=== PATIENT | female | born 1970 | race Caucasian/White ===

== ENCOUNTER 2017-01-07 00:32 | Emergency (ER) | payer SELFPAY ==
[2017-01-07] MEDS ORDERED: NORMAL SALINE 1,000 ML IV ONE (01:01)
[2017-01-07] MEDS ORDERED: ONDANSETRON HCL/PF 2 MG/ML VIAL IV ONE (01:01)
[2017-01-07] MEDS ORDERED: ONDANSETRON HCL/PF 2 MG/ML VIAL ONE (01:03)
[2017-01-07 01:09] LABS: Hemoglobin 15.7 gm/dL (12.5-16.0); Mean Cell Volume 98.7 fl (78-100); Mean Corpuscular Hemoglobin 35.2 pg (27-31); Mean Corpuscular Hgb Conc 35.7 g/dl (32-36); Neutrophil # 4.3 K/mm3 (1.3-6.0); Neutrophil % 48.8 % (42-75.0); Platelet Count 307 K/mm3 (150-450); Red Blood Count 4.46 M/mm3 (4.2-5.4); Red Cell Distribution Width 14.6 % (11.5-14.0); White Blood Count 8.8 K/mm3 (4.0-10.5)
[2017-01-07 01:45] LABS: Albumin * 3.6 gm/dl (3.4-5.0); Anion Gap 22.5 mmol/L (6.8-13.8); BUN/Creatinine Ratio 4.4 (9.0-21.6); Bilirubin, Total 0.6 mg/dL (0.0-1.1); Ca. Corrected For Albumin 7.5 mg/dL (8.4-10.2); Calcium * 7.5 mg/dL (7.9-10.9); Carbon Dioxide 25.3 mmol/L (24-32.6); Potassium 2.8 mmol/L (3.4-4.6); Total Protein 7.8 gm/dL (6.2-8.2)
--- NOTE | 2017-01-07 02:53 | ERNOTE ---
Abdominal HPI - General Chief Complaint: Abdominal Pain Time Seen by Provider: 01/07/17 01:04 Source: patient, family, RN notes reviewed Exam Limitations: no limitations - Immun/Allergies/Home Medications Immunizatons: IMMUNIZATION HX Immunizations Up to Date Yes Allergies/Adverse Reactions: Allergies No Known Allergies Allergy (Unverified 01/07/17 00:50) Home Medications: HOME MEDICATIONS Buspirone HCl 30 mg PO TID 01/07/17 [Last Taken Unknown] Duloxetine HCl [Cymbalta] 60 mg PO DAILY 01/07/17 [Last Taken Unknown] Lisinopril [Zestril] 40 mg PO DAILY 01/07/17 [Last Taken Unknown] Magnesium Chloride [Mag64] 64 mg PO TID 01/07/17 [Last Taken Unknown] Nystatin 100,000 unit PO Q6H #200 oral.susp 01/07/17 [Last Taken Unknown] Omeprazole 40 mg PO DAILY 01/07/17 [Last Taken Unknown] Ondansetron [Zofran Odt] 4 mg SL Q6H PRN #20 tab 01/07/17 [Last Taken Unknown] amLODIPine BESYLATE [Norvasc] 10 mg PO DAILY 01/07/17 [Last Taken Unknown] - History of Present Illness Narrative: 46 year old female with long history of drinking excess alcohol presents with complaints of long standing nausea and vomiting and a seizure the other night witnessed by her spouse. Patient has been trying to cut back on the amount of alcohol she drinks. She was supposed to go to local therapy in [place] but misunderstood (per patient) the directions of where to be and what to do. She complains of the sensation of a swelling in her throat, has been to see Dr. Aburto , who did not appear to think that there was any problem. Timing: intermittent Quality: dullness, fullness Activities at Onset: sleep Modifying Factors - (Improves): Present: vomiting Modifying Factors - (Worsens): Present: eating Associated Symptoms: Present: nausea, vomiting Prior Treatment: Present: recently seen, treated by physician Review of Systems - Review of Systems Constitutional: Present: weakness, fatigue, malaise EYE: Present: no symptoms reported ENT: Present: sore throat Respiratory: Absent: shortness of breath, cough Cardiology: Absent: chest pain, palpitations Gastrointestinal/Abdominal: Present: nausea, vomiting, diarrhea, abdominal pain Genitourinary: Present: no symptoms reported Musculoskeletal: Present: no symptoms reported Skin: Present: no symptoms reported Neurological: Present: anxiety Endocrine: Present: no symptoms reported - Patient's Past Medical History Patient History - Medical: Alcohol Abuse, Anxiety, Depression, GERD Patient History - Cardiac/Respiratory: Hypertension, Hyperlipidemia Patient History - Cancer: No Hx of Cancer Patient History - Surgical Procedures: No surgical history Patient History - Other: None - Social History Living Situations: home Smoking Status: Current every day smoker Patient requests Smoking Cessation Consult: No Initiate information on Smoking Cessation: No Alcohol Use: sober Drug Use: none - Immunizations Immunizations Up to Date: Yes Physical Exam - Physical Exam General Appearance: Present: wd/wn, alert, mild distress, anxious Head Exam: Present: normal inspection, no evidence of injury Eye Exam: Normal inspection: bilateral, PERRL: bilateral, EOMI: bilateral Ears, Nose, Throat: Present: normal ENT inspection, normal pharynx - small area that appears very mildly swollen on the left side of her pharynx Neck: Present: normal inspection, nontender, supple Respiratory: Present: no respiratory distress, normal breath sounds, no accessory muscle use Cardiovascular/Chest: Present: regular rate, rhythm, no murmur, normal peripheral pulses Gastrointestinal/Abdominal: Present: normal bowel sounds, nondistended, soft, tenderness - mild epigastric Back Exam: Present: normal inspection, normal range of motion Extremity Exam: Present: normal inspection Neurological Exam: Present: alert, oriented, normal mood/affect, no motor/ sensory deficits Skin Exam: Present: normal color, warm/dry ED Progress - Results and Orders Patient's Lab Results:: I have reviewed the patient's lab results. - Vital Signs Patient's Vital Signs:: I have reviewed the patient's vital signs. Vital Signs: Vital Signs 01/07/17 01/07/17 00:44 01:19 Temperature 36.8 C Pulse Rate 99 98 Respiratory 20 18 Rate Blood Pressure 137/87 138/79 O2 Sat by Pulse 97 97 Oximetry - Progress/Reassessment Chief Complaint: Abdominal Pain Plan - Plan Plan: Counseling to patient and spouse about alcohol abuse and her options for treatment. Departure - Departure Clinical Impression: Alcohol abuse, Persistent recurrent vomiting, Thrush of mouth and esophagus Withdrawal seizures Qualifiers: Complication of substance-induced condition: uncomplicated Qualified Code(s): F19.230 - Other psychoactive substance dependence with withdrawal, uncomplicated Disposition: Home self-care Condition: Good Instructions: Alcohol Use Disorder, Thrush, Adult, Delirium Tremens, Easy-to- Read, Dehydration, Adult, [id number], Rehydration, Adult, Alcohol Abuse and Nutrition Referrals: Lynne Viveros ARNP [Non Staff Physicians] - Prescriptions: Nystatin 100,000 unit PO Q6H #200 oral.susp Ondansetron [Zofran Odt] 4 mg SL Q6H PRN #20 tab PRN Reason: Nausea And Vomiting
[2017-01-07 03:34] VITALS: BP 134/100
== END 2017-01-07 03:32 | disposition home or self-care (01) ==
LOC: ER 00:32
DX: B37.81 Candidal esophagitis (principal); B37.0 Candidal stomatitis; F19.230 Other psychoactive substance dependence with withdrawal, uncomplicated; F17.200 Nicotine dependence, unspecified, uncomplicated; R56.9 Unspecified convulsions; R11.10 Vomiting, unspecified; F10.10 Alcohol abuse, uncomplicated
CPT/HCPCS: 36415; 80053; 82150; 83690; 85025; 96374; 99284; J2405